=== PATIENT | female | born 1960 | race Caucasian/White ===

== ENCOUNTER 2017-03-10 19:38 | Emergency (ER) | payer BC ==
--- NOTE | ~2017-03-10 | ER ---
PATIENT'S NAME: RITA GARZA [facility] AGE: 56 Y [address] ROOM: [place] [id number] LOCATION: [facility] ADMIT DATE: 03/10/2017 ER/Outpatient Report DISCHARGE DATE: 03/10/2017 FAMILY PHYSICIAN: Angelito Álvarez MD ATTENDING PHYSICIAN: Pete Moran Time of Arrival: 1944 hours. Time of Evaluation: 1956 hours. CHIEF COMPLAINT: Rash. HISTORY OF PRESENT ILLNESS: The patient was seen by Hallie Brenner on 03/01/2017, diagnosed with either bed bugs or mites of some sort and given permethrin cream and triamcinolone cream. The patient states she has been using the permethrin cream every night since then and has been using the triamcinolone for the itching, but it is not helping with the itch. She states her concern tonight is that she started to develop a rash in the right side of her neck into the right the ear and to the right side of her face. It is painful and does itch also. She states the sores on her arms are improving, but not gone. She has not felt febrile. She has not had any nausea or vomiting, not had any vision changes, but she just feels like the rash is getting close to her right eye. ALLERGIES: SHE HAS NO KNOWN ALLERGIES. CURRENT MEDICATIONS: On her chart and reviewed by me. PAST MEDICAL HISTORY: Lpq-[id number]-brenredgx diabetes, hypertension, recent dermis site exposure. PAST SURGERIES: Ankle surgery, shoulder surgery, cholecystectomy, 3 C-sections, and hysterectomy. SOCIAL HISTORY: She presented tonight with her . Denies use of tobacco, drugs, or alcohol. ROS: Negative other than those mentioned in the HPI. PHYSICAL EXAMINATION: PATIENT'S NAME: RITA GARZA [facility] AGE: 56 Y [address] ROOM: [place], [place] [address] LOCATION: [facility] ADMIT DATE: 03/10/2017 ER/Outpatient Report DISCHARGE DATE: 03/10/2017 FAMILY PHYSICIAN: Angelito Álvarez MD ATTENDING PHYSICIAN: Pete Moran VITAL SIGNS: She weighed 84.5 kg, blood pressure was 153/70, pulse is 78, respirations 16, temperature of 98.5, O2 saturation is 97% on room air. GENERAL: She is awake, alert, and oriented x4. SKIN: Mikes, warm, and dry. RESPIRATIONS: Even and nonlabored. LUNGS: Lung sounds are clear throughout. HEART: Regular rate and rhythm. EMERGENCY DEPARTMENT COURSE: The patient has a raised rash of the right neck area and has redness and swelling of the right ear. The area of inflammation looks like the start of shingles. No rash around right eye noted. Pupils are equal and reactive to lilght. Discussed with the patient that I feel she has 2 different things going on; the new symptoms that she has starting today appears to be shingles and then the mites that she is being treated for do like appear as though they are improving. IMPRESSION: 1. Shingles. 2. Sores of her arms related to recent mite infection. PLAN: We will start the patient on valacyclovir tablets, prednisone, and a prescription was written for [place] for the pain. She was given [place] x2 tabs tonight before she left to help with the discomfort. She is to stop using the Permetherin cream on a daily basis. Patient reports she has seen Dr. Petty Orosco for eye problems in the past. She is to call in am and make an appointment to have the right eye rechecked. I have encouraged her to follow up with her primary provider if her symptoms worsened instead of improved within the next 2-3 days or she is welcome to return to the ER. She verbalized understanding. SAMUEL ZIMMERMAN APRN FOR MD MYRANDA CRUZ/genesis /[id number] d: 03/11/17 0208 t: 03/13/17 1249, OUTPATIENT REPORT
== END 2017-03-10 20:15 | disposition disaster alternative care site (69) ==
LOC: GMED 19:38
DX: B02.9 Zoster without complications (principal); E11.9 Type 2 diabetes mellitus without complications; I10 Essential (primary) hypertension; Z79.899 Other long term (current) drug therapy